=== PATIENT | female | born 1965 | race Caucasian/White ===

== ENCOUNTER 2020-10-13 19:07 | Emergency (ER) | payer MEDICAID ==
[~2020-10-13] VITALS: Ht 165.1 cm; Wt 99.0 kg
[2020-10-13] MEDS ORDERED: IBUPROFEN 600MG TABLET PO ONE (22:00)
[2020-10-13] MEDS ORDERED: AMOXICILLIN/POTASSIUM CLAVULANATE 875/125MG TAB PO ONE (22:00)
[2020-10-13 23:37] VITALS: BP 134/64
== END 2020-10-13 23:38 | disposition home or self-care (01) ==
LOC: ER 19:07
DX: K11.20 Sialoadenitis, unspecified (principal); Z86.19 Personal history of other infectious and parasitic diseases
CPT/HCPCS: 99283

== ENCOUNTER 2024-07-26 09:57 | Emergency (ER) | payer MEDICAID ==
[~2024-07-26] VITALS: Ht 162.6 cm; Wt 80.0 kg
[2024-07-26 10:01] VITALS: BP 150/74; TEMP 98.5; O2SAT 100
[2024-07-26 10:04] VITALS: PULSE 68; RESP 16; O2SAT 98
[2024-07-26] MEDS ORDERED: NAPR-1176 MT (11:12)
[2024-07-26] MEDS ORDERED: LIDO700A15 TP (11:12)
== END 2024-07-26 11:36 | disposition home or self-care (01) ==
LOC: ER 10:12
DX: M25.512 Pain in left shoulder (principal); M25.562 Pain in left knee; M25.572 Pain in left ankle and joints of left foot; Z98.890 Other specified postprocedural states; W10.9XXA Fall (on) (from) unspecified stairs and steps, initial encounter; Y93.01 Activity, walking, marching and hiking; Y92.89 Other specified places as the place of occurrence of the external cause; Y99.8 Other external cause status
CPT/HCPCS: 73030; 73562; 73610; 73630; 99284